=== PATIENT | male | born 1985 | race Caucasian/White ===

== ENCOUNTER 2020-11-04 15:51 | Emergency (ER) | payer OTHER ==
[~2020-11-04] VITALS: Ht 182.9 cm; Wt 127.9 kg
[~2020-11-04 15:51] MED LIST: AMOXICILLIN500 M1 PO; AURALGAN EAR DR14 ML OT; BUTALB-ACETAMI1 EAC2; CIPROFLOXACIN500 M1 PO; DEPAKOTE ER500 MG; DEPAKOTE500 MG PO; GLUCOPHAGE500 MG PO; LEXAPRO 10 MG T10 M2; LISINOPRIL2.5 MG PO; NAPROSYN500 MG PO; NOHOMEMEDICATIONS; NORCO 5-325 TA1 EACH PO; NORFLEX100 MG PO; PERCOCET 5-3251 EACH PO; QUETIAPINE FUM100 MG PO; ZPAK PO
[2020-11-04] MEDS ORDERED: CRESTOR40 MG PO (16:18)
[2020-11-04] MEDS ORDERED: HUMALOG100 UNIT/1 SUBQ (16:18)
[2020-11-04] MEDS ORDERED: LANTUS SUBQ (16:19)
[2020-11-04 17:58] VITALS: BP 158/83
--- NOTE | 2020-11-06 12:44 | EKG ---
[place] [address] ELECTROCARDIOGRAM REPORT Name: EAMON TOMLIN JR Room: [facility]#: [id number] Admission: 11/04/20 Attend Phys: Discharge: 11/04/20 Date of : 89 Date of Service: 11/04/20 1621 Report #: [id number] THIS REPORT FOR: //name// [facility] ED Test Date: 2020-11-04 Test Time: 16:21:25 Pat Name: EAMON TOMLIN Department: Room: Gender: [employer]: [facility] : 1985 Requested By: Bipin Ibarra Order Number: [id number] Ruperto MD: Ronal Wright Measurements Intervals [place] Rate: 93 P: 48 NH: 173 QRS: 13 QRSD: 87 T: 32 QT: 350 QTc: 436 Interpretive Statements Sinus rhythm Baseline wander in lead(s) V3,V4 Compared to ECG 10/15/2012 21:11:52 Sinus arrhythmia no longer present Electronically Signed On 11-06-2020 12:44:06 CDT by Ronal Wright [email or web address] <ELECTRONICALLY SIGNED> By: Ronal Wright MD, [facility] 11/06/20 1244 1621 1621 Ronal Wright MD, [facility] /EPI
== END 2020-11-04 17:59 | disposition home or self-care (01) ==
LOC: M.ERS 15:51
DX: B34.9 Viral infection, unspecified (principal); Z20.822 Contact with and (suspected) exposure to COVID-19; Z88.1 Allergy status to other antibiotic agents; Z88.8 Allergy status to other drugs, medicaments and biological substances; Z90.89 Acquired absence of other organs; Z90.49 Acquired absence of other specified parts of digestive tract

== ENCOUNTER 2021-01-03 11:27 | Emergency (ER) | payer OTHER ==
[~2021-01-03] VITALS: Ht 182.9 cm; Wt 119.3 kg
[~2021-01-03 11:27] MED LIST changes: +CRESTOR40 MG PO; +HUMALOG100 UNIT/1 SUBQ; +LANTUS SUBQ
[2021-01-03] MEDS ORDERED: HYDROCODON-ACE1 EAC7 PO (11:37)
[2021-01-03] MEDS ORDERED: FLEXERIL PO (11:37)
[2021-01-03 12:01] LABS: ABSOLUTE BASOPHILS 0.1 thou/uL (0.0-0.2); ABSOLUTE EOSINOPHILS 0.2 thou/uL (0.0-0.7); ABSOLUTE LYMPHOCYTES 2.5 thou/uL (0.8-5.3); ABSOLUTE MONOCYTES 0.8 thou/uL (0.0-1.2); ABSOLUTE NEUTROPHILS 4.9 thou/uL (1.6-8.1); BASOPHILS 0.6 %; EOSINOPHILS 2.5 %; HEMATOCRIT 51.2 % (42.0-52.0); HEMOGLOBIN 18.1 gm/dL (14.0-18.0); LYMPHOCYTES 29.7 %; MCH 31.3 pg (26.0-34.0); MCHC 35.4 g/dL (28.0-37.0); MCV 88.6 fL (80.0-100.0); MONOCYTES 9.3 %; MPV 7.3 fl. (7.2-11.1); NUCLEATED RBCS 1 /100WBC; PLATELET COUNT* 275 thou/uL (150-400); POLYS 57.9 %; RBC 5.78 mil/uL (4.50-6.00); RDW-CV 12.6 % (10.5-14.5); WBC 8.5 thou/uL (4.0-11.0)
[2021-01-03 12:10] LABS: CALCIUM 9.6 mg/dL (8.5-10.1); CREATININE 0.8 mg/dL (0.6-1.3); POTASSIUM 4.4 mmol/L (3.5-5.1)
[2021-01-03 12:10] LABS: URINE BILIRUBIN NEGATIVE (Negative); URINE BLOOD NEGATIVE (Negative); URINE CLARITY CLEAR; URINE COLOR YELLOW; URINE GLUCOSE-RANDOM 3+ (Negative); URINE KETONES NEGATIVE (Negative); URINE LEUKOCYTES-REFLEX NEGATIVE (Negative); URINE NITRITE-REFLEX NEGATIVE (Negative); URINE PROTEIN NEGATIVE (Negative); URINE SPECIFIC GRAVITY >= 1.030 (1.005-1.030); URINE UROBILINOGEN 0.2 E.U./dl (0.2-1.0)
[2021-01-03 12:15] LABS: TOTAL BILIRUBIN 0.9 mg/dL (<0.1-1.0); TOTAL PROTEIN 9.3 g/dL (6.4-8.2)
[2021-01-03 13:44] VITALS: BP 124/68
== END 2021-01-03 13:45 | disposition home or self-care (01) ==
LOC: M.ERS 11:27
PROVIDERS: Physician Assistant
DX: M54.5 Low back pain (principal); Z90.49 Acquired absence of other specified parts of digestive tract; Z90.89 Acquired absence of other organs; Z79.899 Other long term (current) drug therapy; Z88.1 Allergy status to other antibiotic agents; Z88.7 Allergy status to serum and vaccine; Z88.8 Allergy status to other drugs, medicaments and biological substances; Z79.4 Long term (current) use of insulin

== ENCOUNTER 2021-02-11 18:22 | Emergency (ER) | payer OTHER ==
[~2021-02-11] VITALS: Ht 182.9 cm; Wt 117.9 kg
[~2021-02-11 18:22] MED LIST changes: +FLEXERIL PO; +HYDROCODON-ACE1 EAC7 PO
[2021-02-11 20:16] VITALS: BP 150/80
== END 2021-02-11 20:17 | disposition home or self-care (01) ==
LOC: M.ERS 18:22
DX: M79.604 Pain in right leg (principal); Z90.49 Acquired absence of other specified parts of digestive tract; Z90.89 Acquired absence of other organs; Z79.899 Other long term (current) drug therapy; Z88.8 Allergy status to other drugs, medicaments and biological substances

== ENCOUNTER 2021-03-02 13:05 | Emergency (ER) | payer OTHER ==
[~2021-03-02] VITALS: Ht 182.9 cm; Wt 113.4 kg
[2021-03-02] MEDS ORDERED: VENTOLIN HFA 1818 GM INH (14:15)
[2021-03-02 14:24] VITALS: BP 145/72
== END 2021-03-02 14:25 | disposition home or self-care (01) ==
LOC: M.ERS 13:05
DX: U07.1 COVID-19 (principal); Z20.822 Contact with and (suspected) exposure to COVID-19; Z90.49 Acquired absence of other specified parts of digestive tract; Z90.89 Acquired absence of other organs; Z96.22 Myringotomy tube(s) status; Z98.890 Other specified postprocedural states; Z79.899 Other long term (current) drug therapy; Z88.1 Allergy status to other antibiotic agents; Z88.8 Allergy status to other drugs, medicaments and biological substances; Z88.7 Allergy status to serum and vaccine